=== PATIENT | female | born 1990 | race Caucasian/White ===

== ENCOUNTER 2016-07-31 13:58 | Inpatient (IN) | payer OTHER ==
[~2016-07-31] VITALS: Ht 165.1 cm; Wt 108.0 kg
[2016-07-31 14:23] VITALS: BP 98/59
[2016-07-31] MEDS ORDERED: NEXI20CA PO (14:24)
[2016-07-31] MEDS ORDERED: ASPI1TAB PO (14:24)
[2016-07-31] MEDS ORDERED: PRENTAB9 PO (14:24)
[2016-07-31] MEDS ORDERED: HEPA1010VL INJ (14:24)
[2016-07-31] MEDS ORDERED: CRAN125T PO (14:24)
[2016-07-31] MEDS ORDERED: LR 1,000 ML IV SCH ×2 (16:20→23:54)
[2016-07-31] MEDS ORDERED: miSOPROStol 50 MCG 1/2 TAB (S0191) PV ONE (16:30)
[2016-07-31 16:51] VITALS: BP 136/67
[2016-07-31 17:19] LABS: MEAN CORPUSCULAR HEMOGLOBIN 30.9 pg (27.0-33.0); MEAN CORPUSCULAR HGB CONC 35.1 g/dl (32.0-36.5); MEAN CORPUSCULAR VOLUME 88.2 fl (80.0-96.0); RED CELL DISTRIBUTION WIDTH 13.5 % (11.5-14.5); WHITE BLOOD COUNT 11.4 K/mm3 (4.0-10.0)
[2016-07-31 17:25] LABS: INR 0.92
[2016-07-31 18:18] VITALS: BP 143/64
--- NOTE | 2016-07-31 18:56 | HPE ---
DATE OF ADMISSION: 07/31/2016 This lady is a 26-year-old 7, para 3, abortio 3, last menstrual period (LMP) 10/30/2015, estimated date of confinement (EDC) 08/05/2016 at 39 and 2 weeks of gestation for induction of labor with a heparin window presently because of antibody antiphospholipid syndrome. RISK FACTORS: She has antiphospholipid antibody syndrome, gastroesophageal reflux disease (GERD), and obesity with a body mass index (BMI) of greater than 37. PAST HISTORY: In 2009 at 41 weeks, vaginal delivery, induction of labor, 6-pound 8-ounce female. In 2012, at 40 and 4 weeks, a 7-pound 14-ounce male, and in 2013 at 40 and 3 an 8-pounds 11-ounce female with induction of labor. Her labs are B positive, HIV negative, hepatitis negative, RPR negative, rubella immune, Varicella immune. Pap normal. VDRL negative. Early 1-hour glucose was 106. A 28-week glucose was 92. Group B streptococcus (GBS) negative. Gonorrhea and chlamydia are negative. Her urine is 1.000, pH 7, negative. Temperature 98.4, pulse 111, blood pressure 98/58. Respirations are 18. PHYSICAL EXAMINATION: She has a category 1 strip. No contractions. Normocephalic, atraumatic. Neck: Full range of motion. Pupils equal and reactive to light. Distal pulses are symmetric. No evidence of deep vein thrombosis (DVT), pulmonary embolism (PE ),or superficial phlebitis. No wheezes or rhonchi. No costovertebral angle (CVA) tenderness. Nontender abdomen. Four-quadrant bowel sounds are noted. Symphysis fundus height is appropriate. Cervix: Posterior, -2 station, 1-2 cm, soft, 80% effaced. She has no lesions, rashes, or pruritus. No arthralgia, myalgia. No complaints of cough, wheeze, shortness of breath, or dyspnea on exertion. No palpitations or chest pain. She is not bruised. She is not bleeding. Neurologic complete. No incontinency, urgency, or frequency. No nausea, vomiting, diarrhea, or constipation. No diabetic issues. No cold or sensitivity issues. GYNECOLOGIC HISTORY: Unremarkable. PAST MEDICAL HISTORY: Unremarkable. FAMILY HISTORY: Noncontributory. SOCIAL HISTORY: She does not smoke, drink, or abuse drugs. She is . There is no domestic violence. We discussed the risks and benefits of induction of labor, including increased risk of bleeding, increased risk of section, increased risk of distress. The window of opportunity of heparin is presently on, although she took her aspirin ASA this morning. She may have an elevated PT, PTT and INR, and this is increased risk of abruptio placenta. After discussing risks and benefits, we discussed induction of labor. She had Cytotec before plus Pitocin. Although she was given it orally, we prefer to do it vaginally, and we will assess her every 4 hours. In regard to pain management, of coagulation studies are appropriate, she is a candidate for an epidural, though she declines epidural at this time. She will have sequentials on board. She does not need prophylactic antibiotics. GBS is negative, and monitoring as per protocol. We spent 25 minutes talking to mother and her partner.
[2016-07-31] MEDS ORDERED: OXYTOCIN 30 UNITS IN 0.9% NaCl 500ML IV BAG (J2590) As Ordered ONE (22:37)
[2016-08-01] VITALS (9 sets, daily range): BP systolic 113–154; BP diastolic 61–85
[2016-08-01] MEDS ORDERED: OXYTOCIN DRIP 30 UNITS in APPROPRIATE DILUENT 1 EA IV SCH ×2
[2016-08-01] MEDS ORDERED: METHYLERGONOVINE MALEATE 0.2 MG TAB PO PRN (03:00)
[2016-08-01] MEDS ORDERED: MOM 30ML SUSPENSION UDC PO PRN (03:00)
[2016-08-01] MEDS ORDERED: DIBUCAINE 1% OINTMENT 30GM TOP PRN (03:00)
[2016-08-01] MEDS ORDERED: RHOGAM 300 MCG (1500 IU) INJ (J2790) IM SCH (03:00)
[2016-08-01] MEDS ORDERED: DOCUSATE SODIUM 100 MG CAP PO PRN (03:00)
[2016-08-01] MEDS ORDERED: MEASLES,MUMPS,RUBELLA VACCINE INJ (MMR-II) (90707) SC SCH (03:00)
[2016-08-01] MEDS ORDERED: ANUSOL HC CREAM 30GM TOP PRN (03:00)
[2016-08-01 03:11] LABS: CORD GAS ABE V 1.5; CORD GAS HCO3 V 26.3 MEQ/L; CORD GAS O2 SAT V 53.4 %; CORD GAS PCO2 V 42.1 mmHg; CORD GAS PH V 7.413 UNITS; CORD GAS PO2 V 21.6 mmHg; CORD GAS SBC V 24.6 MEQ/L; CORD GAS TCO2 V 27.6 MEQ/L
[2016-08-01 03:13] LABS: CORD GAS ABE A -1.2; CORD GAS HCO3 A 24.5 MEQ/L; CORD GAS O2 SAT A 31.5 %; CORD GAS PCO2 A 44.3 mmHg; CORD GAS PH A 7.36 UNITS; CORD GAS PO2 A 15.9 mmHg; CORD GAS SBC A 21.8 MEQ/L; CORD GAS TCO2 A 25.8 MEQ/L
--- NOTE | 2016-08-01 06:13 | HPE ---
DATE OF ADMISSION: 07/31/2016 This lady is a 26-year-old, 7, para 3, aborto 3, last period 10/30/2015, estimated date of confinement (EDC) 08/05/2016, at 39 and 2, for induction of labor because of heparin window. She has antiphospholipid antibody syndrome. Her past history is in 2009, at 41 weeks, vaginal delivery, induction labor, 6 pounds 8 ounces, female. In 2012, at 40 and 4, 7 pounds 14 ounce male. In 2013, 40 and 3 weeks of gestation, female, 8 pounds 11 ounces, induction of labor. Her risk factors is she has antiphospholipid antibody syndrome, gastroesophageal reflux disease and her body mass index (BMI) is greater than 37. Labs are B+, HIV negative, hepatitis negative, RPR negative, rubella immune. Varicella immune. Pap normal. Urine negative. 1-hour glucose 106. 1-hour GTT at 28 weeks was 92. GBS negative, and gonorrhea and Chlamydia are negative. On examination, no distress. She is now presently 12 hours off her heparin, but she did take her aspirin this morning. She has a category 1 strip with no contractions. She is normocephalic, atraumatic. Neck full range of motion. Pupils equal and reactive to light. Distal pulses are symmetric. No evidence of deep venous thrombosis (DVT), pulmonary embolism (PE) or superficial phlebitis. No wheezes or rhonchi. Chest is clear bilaterally to bases. Four quadrant bowel sounds are noted. Symphysis fundus height is 39 and category 1 strip. She is cervix posterior, 1-2 cm, 80% effaced, -2 station. No rashes or lesions or pruritus. No arthralgia or myalgia. No complaints of cough, wheezes, shortness of breath or dyspnea on exertion. No chest pain. No bruising. No bleeding. Neuro complete. No incontinency, urgency or frequency. No nausea, vomiting, diarrhea or constipation. No diabetic issues. She has no [employer]NA[employer] issues. Past medical history unremarkable. She has phospholipid antibody syndrome. No family contributing history. Does not smoke or drink, abuse drugs. She is . There is no domestic violence. We discussed the risks and benefits of induction of labor including increased risk of section, distress, intensive care unit, abruptio placenta. She expressed understanding of the options available. We decided on Cytotec PV 50 mg. She complained that this did not work the last time and it was recommended that we try with that as opposed to oral Cytotec. Patient agreed to that formula. Her hemoglobin 13.1, hematocrit 37.3, platelets 202. PT is 12.5, INR 0.92 and PTT is 20.6. Urine is 1.000, pH 7, negative. 98.4 temperature, 101 pulse, 98/59 blood pressure, respirations are 18. In summary, we have a term gestation for induction of labor at 39 weeks because of antiphospholipid antibody syndrome and a window with heparin. Our plan of management is to hydrate the patient, appropriate blood work, anticipate vaginal delivery and use of sequentials is important, and we will restart her Lovenox 6-8 hours postdelivery.
--- NOTE | 2016-08-01 06:34 | IPN ---
DATE: 08/01/2016 This lady and requested circumcision of their male . After discussing risks and benefits of circumcision, the medical and nonmedical indications, the penile block and aftercare expressed understanding of the procedure and aftercare, signed and witnessed the consent form. We await the medical clearance by the veterinary attendant.
--- NOTE | 2016-08-01 06:51 | IPN ---
DATE: 08/01/2016 26-year-old 7 now para 4 admitted for induction of labor because of window of heparin negative. She had a spontaneous vaginal delivery live male infant weighing 7 pounds 6 ounces, 3340 grams. of 9 and 9 and one and five minutes respectively. Arterial pH 7.36, base excess -1.2, venous pH 7.41, base excess 1.5. Her admitting hemoglobin 13.1, hematocrit 37.3, platelets are 202. We awaiting her 0600 blood work. Her issues are that she was antiphospholipid antibody syndrome, gastroesophageal reflux disease and BMI greater than 37. This morning, her blood pressure is 131/74, respirations 18, pulse 94, temperature 97.3. She is to start her Lovenox at 0800 hours as prophylaxis. She is on sequentials. The rest of the examination, she is normocephalic, atraumatic. Neck: Full range of motion. Pupils equal and reactive to light. Distal pulses symmetric. No evidence of DVT, PE or superficial phlebitis. No wheezes or rhonchi. Chest is clear bilaterally to the bases. No CVA tenderness. Uterus two below. Lochia is moderate. Abdomen is soft. Bowel sounds are noted. No pruritus. No rashes or lesions. No arthralgia or myalgia. She does not complain of cough, wheeze, shortness of breath or dyspnea on exertion. No chest pain. She is not bleeding. She is not bruised. She is neuro complete. No incontinency, urgency, frequency. No nausea, vomiting, diarrhea or constipation. We discussed phlebitis, cystitis, mastitis, endometritis and cellulitis, diet, exercise, pain management, perineal breast and wound care. She is planning on having her have a vasectomy after her 6-week checkup and plan on discharge sometime tomorrow morning. Medications will be given appropriately on discharge.
--- NOTE | 2016-08-01 07:46 | DN ---
DATE: 08/01/2016 DELIVERY NOTE: This lady was admitted for induction of labor because of heparin window and antiphospholipid antibody syndrome. She had one dose of Cytotec per vagina. Got fully dilated quite rapidly. Had a spontaneous rupture of membranes. Delivered a live male infant, 3344 grams (7 pounds 6 ounces) . of 9 and 9 at one and five minutes, respectfully. Placenta delivered spontaneously, thereafter. Three-vessel cord, membranes and tissues intact. Vagina was examined, found to be normal. The cervix was normal. The uterus contracted well down on Pitocin. The patient will be continued on Lovenox in 8 hours and sequential as needed.
[2016-08-01] MEDS: PRENATAL VITAMIN TAB PO SCH (08:22)
[2016-08-01] MEDS: IBUPROFEN 800 MG TAB PO PRN ×2 (08:23→16:36)
[2016-08-01] MEDS: ENOXAPARIN 40 MG/0.4 ML SYRINGE (J1650) SC SCH (08:26)
[2016-08-01] MEDS ORDERED: ENOXAPARIN 40 MG/0.4 ML SYRINGE (J1650) SC SCH (09:00)
[2016-08-01] MEDS: ACETAMINOPHEN 500 MG TAB PO PRN ×2 (13:01→20:29)
[2016-08-02] MEDS: IBUPROFEN 800 MG TAB PO PRN (03:16)
[2016-08-02 06:29] VITALS: BP 116/53
--- NOTE | 2016-08-02 06:39 | IPNPDOC ---
Text Note Date of Service The patient was seen on 08/02/16 at 06:38. NOTE PPD1 Prog note States feeling well. No complaints. Pain controlled. Breast feeding well. VB slowing. Ambulatory and voiding well. No N/V/CP/SOB/LP. VSS Ut at U-2/firm LE no CCE a/p: Doing well. Routine PP care, d/c today. Sessions VSKenya, I+O VSKenya I+O Vital Signs Date Time Temp Pulse Resp B/P Pulse Ox O2 Delivery O2 Flow Rate FiO2 08/02/16 06:29 96.7 68 18 116/53 08/01/16 05:34 Room Air I&O- Last 24 Hours up to 6 AM 08/02/16 06:00 Intake Total 500 ml Output Total 800 ml Balance -300 ml SESSIONS,ALVARO Vieyra MD Aug 02, 2016 06:39
--- NOTE | 2016-08-02 06:44 | DS.PDOC ---
Discharge Summary General Date of Admission Jul 31, 2016 at 13:58 Date of Discharge [id number] Discharge Summary COMPLICATIONS/CHIEF COMPLAINT: Induction due to antiphospholipid antibody syndrome ADMISSION DIAGNOSES: 1. Induction of labor DISCHARGE DIAGNOSES: 1. Successful in [facility] COURSE: Patient was admitted for Induction and delivered a healthy male. She had an uncomplicated course thereafter. DISCHARGE MEDICATIONS: Motrin, Tylenol, Colace, Lanolin, plans on condoms for control PHYSICAL EXAMINATION ON DISCHARGE: see prog note from this AM VITAL SIGNS: Please see below. DISCHARGE CONDITION: stable DISPOSITION: to home ACTIVITY: Nothing in the vagina for 6-8 weeks. Regular diet. DISCHARGE PLAN AND INSTRUCTIONS: follow up at 6 week visit Sessions Vital Signs/I&Os Vital Signs Date Time Temp Pulse Resp B/P Pulse Ox O2 Delivery O2 Flow Rate FiO2 08/02/16 06:29 96.7 68 18 116/53 08/01/16 05:34 Room Air I&O- Last 24 Hours up to 6 AM 08/02/16 06:00 Intake Total 500 ml Output Total 800 ml Balance -300 ml Medications Scheduled Aspirin (Aspirin 81) 81 Mg Tab 81 MG PO DAILY Cranberry Extract (Cranberry) 125 Mg Tab 125 MG PO DAILY Esomeprazole Magnesium Trihydr (Nexium) 20 Mg Cap 20 MG PO DAILY Heparin Sod (Porcine) (Heparin Sodium) 10,000 Mg/10 Ml Inj 10,000 MG INJ BID Multivitamins/ ( 27-0.8 mg) 1 Tab Tab 1 TAB PO DAILY Allergies Coded Allergies: No Known Allergies (Unverified , 07/31/16) SESSIONS,ALVARO Vieyra MD Aug 02, 2016 06:44
[2016-08-02 07:11] LABS: MEAN CORPUSCULAR HEMOGLOBIN 30.7 pg (27.0-33.0); MEAN CORPUSCULAR HGB CONC 34.5 g/dl (32.0-36.5); RED CELL DISTRIBUTION WIDTH 13.7 % (11.5-14.5); WHITE BLOOD COUNT 10.5 K/mm3 (4.0-10.0)
[2016-08-02] MEDS: PRENATAL VITAMIN TAB PO SCH (08:27)
[2016-08-02] MEDS: ENOXAPARIN 40 MG/0.4 ML SYRINGE (J1650) SC SCH (08:27)
[2016-08-02] MEDS ORDERED: ASPIRIN 81 MG CHEW TABLET PO SCH (09:00)
[2016-08-02] MEDS ORDERED: ADACEL/BOOSTRIX VACCINE (DIPHTH/PERTUSS/ACELL/TETANUS)0.5ML SYR (90715) IM ONE (09:00)
[2016-08-02] MEDS ORDERED: IBUP-1114 PO (11:21)
[2016-08-02] MEDS ORDERED: ACET50TA PO (11:21)
[2016-08-02] MEDS ORDERED: LOVE1INJ SC (11:21)
[2016-08-02] MEDS ORDERED: COLA100C PO (11:21)
== END 2016-08-02 15:24 | disposition home or self-care (01) | DRG 775 ==
LOC: M LDI 13:58 → M OBS 08-01 04:52
PROVIDERS: ADMIT Obstetrics & Gynecology; ATTEND Obstetrics & Gynecology
PROC: 3E0P7GC Introduction of Other Therapeutic Substance into Female Reproductive, Via Natural or Artificial Opening (ICD-10-PCS; 2016-07-31)
PROC: 10E0XZZ Delivery of Products of Conception, External Approach (ICD-10-PCS; principal; 2016-08-01)
DX: O99.12 Other diseases of the blood and blood-forming organs and certain disorders involving the immune mechanism complicating childbirth (principal); D68.61 Antiphospholipid syndrome; Z37.0 Single live birth; Z3A.39 39 weeks gestation of pregnancy; E66.9 Obesity, unspecified; K21.9 Gastro-esophageal reflux disease without esophagitis; O99.62 Diseases of the digestive system complicating childbirth; O99.214 Obesity complicating childbirth; Z68.37 Body mass index [BMI] 37.0-37.9, adult